=== PATIENT | male | born 1955 | race Asian ===

== ENCOUNTER 2017-12-01 18:42 | Inpatient (IN) | payer OTHER ==
[~2017-12-01] VITALS: Ht 175.3 cm; Wt 65.8 kg
[2017-12-01 18:47] VITALS: BP_SYST 196
[2017-12-01] MEDS ORDERED: ASPIRIN 81 MG TAB.CHEW PO ONE (19:00)
[2017-12-01] MEDS ORDERED: ASPIRIN 81 MG TAB.CHEW ONE (19:06)
[2017-12-01 19:18] LABS: BASOPHILS # (AUTO) 0.1 K/uL (0.0-0.2); BASOPHILS % (AUTO) 0.7 % (0.0-2.0); EOSINOPHILS # (AUTO) 0.1 K/uL (0.0-0.4); EOSINOPHILS % (AUTO) 0.8 % (0.0-4.0); HEMATOCRIT 42.4 % (36-54); HEMOGLOBIN 13.2 g/dL (14.0-18.0); LYMPHOCYTES # (AUTO) 1.4 K/uL (1.0-5.5); LYMPHOCYTES % (AUTO) 19.7 % (20.5-51.5); MEAN CORPUSCULAR HEMOGLOBIN 22 pg (27-31); MEAN CORPUSCULAR HGB CONC 31 % (32-36); MEAN CORPUSCULAR VOLUME 71 fL (79.0-98.0); MONOCYTES # (AUTO) 0.3 K/uL (0.0-1.0); MONOCYTES % (AUTO) 4.2 % (1.7-9.3); NEUTROPHILS # (AUTO) 5.4 K/uL (1.8-7.7); NEUTROPHILS % (AUTO) 74.6 % (40.0-70.0); PLATELET COUNT (AUTO) 203 K/uL (130-430); RED BLOOD CELL COUNT(AUTO) 6.02 MIL/uL (4.2-6.2); RED CELL DISTRIBUTION WIDTH 13.6 % (9.0-15.0); WHITE BLOOD COUNT (AUTO) 7.3 K/uL (4.8-10.8)
[2017-12-01 19:23] LABS: CALCIUM 9.3 mg/dL (8.4-11.0); CREATININE 0.97 mg/dL (0.55-1.30)
[2017-12-01] MEDS ORDERED: NIFE90TA24 PO (19:26)
[2017-12-01] MEDS ORDERED: FERR159T2 PO (19:26)
[2017-12-01] MEDS ORDERED: SIMV40TA2 PO (19:26)
[2017-12-01] MEDS ORDERED: FERR15DR21 PO (19:26)
[2017-12-01] MEDS ORDERED: TAMS-11 PO (19:26)
[2017-12-01] MEDS ORDERED: METO25TA3 PO (19:26)
[2017-12-01] MEDS ORDERED: MULT-1164 PO (19:26)
[2017-12-01] MEDS ORDERED: LOSA50TA3 PO (19:26)
[2017-12-01] MEDS ORDERED: TRAM50TA92 PO (19:26)
[2017-12-01 19:27] LABS: PROTHROMBIN TIME 10.1 SECS (9.5-12.5)
[2017-12-01 19:28] LABS: ALBUMIN 3.7 g/dL (3.4-4.8); POTASSIUM 2.9 mmol/L (3.5-5.1); TOTAL BILIRUBIN 0.8 mg/dL (0.0-1.0)
[2017-12-01] MEDS ORDERED: POTASSIUM CHLORIDE 20 MEQ TAB.PRT.SR PO ONE (19:30)
[2017-12-01] MEDS ORDERED: NACL 0.9% 1,000 ML IV ONE (20:00)
[2017-12-01] MEDS ORDERED: hydrALAZINE HCL 20 MG/ML VIAL IVP ONE (20:00)
[2017-12-01] MEDS ORDERED: GLU500 PO (20:45)
[2017-12-01 20:56] VITALS: BP_SYST 144
[2017-12-01] MEDS ORDERED: D5W 1,000 ML IV PRN (23:14)
[2017-12-01] MEDS ORDERED: ALBUTEROL SULFATE 0.083% 2.5 MG/3 ML VIAL.NEB INH PRN (23:15)
[2017-12-01] MEDS ORDERED: DEXTROSE 50% JECT 50 ML DISP.SYRIN IVP PRN ×2 (23:15)
[2017-12-01] MEDS ORDERED: GLUCOSE 15 GM GEL (in 37.5 GM TUBE) PO PRN ×2 (23:15)
[2017-12-01] MEDS ORDERED: ONDANSETRON HCL 4 MG/2 ML VIAL IVP PRN (23:15)
[2017-12-01 23:33] VITALS: BP_SYST 144
[2017-12-01] MEDS: ACETAMINOPHEN 325 MG TABLET PO PRN (23:55)
[2017-12-01 23:56] VITALS: BP_SYST 138
[2017-12-02] MEDS ORDERED: traMADol HCL HCL 50 MG TABLET (ULTRAM) PO PRN ×2 (01:00→11:30)
[2017-12-02] MEDS: INSULIN REGULAR, HUMAN 100 UNITS/ML, 10 ML VIAL (novoLIN R) SUBCUT PRN ×4 (07:09→21:29)
[2017-12-02 07:23] LABS: BASOPHILS # (AUTO) 0.1 K/uL (0.0-0.2); BASOPHILS % (AUTO) 0.7 % (0.0-2.0); EOSINOPHILS # (AUTO) 0.1 K/uL (0.0-0.4); EOSINOPHILS % (AUTO) 1.5 % (0.0-4.0); HEMATOCRIT 40.3 % (36-54); HEMOGLOBIN 12.7 g/dL (14.0-18.0); LYMPHOCYTES # (AUTO) 1.7 K/uL (1.0-5.5); LYMPHOCYTES % (AUTO) 21.8 % (20.5-51.5); MEAN CORPUSCULAR HEMOGLOBIN 22 pg (27-31); MEAN CORPUSCULAR HGB CONC 32 % (32-36); MEAN CORPUSCULAR VOLUME 70 fL (79.0-98.0); MONOCYTES # (AUTO) 0.4 K/uL (0.0-1.0); MONOCYTES % (AUTO) 4.9 % (1.7-9.3); NEUTROPHILS # (AUTO) 5.4 K/uL (1.8-7.7); NEUTROPHILS % (AUTO) 71.1 % (40.0-70.0); PLATELET COUNT (AUTO) 190 K/uL (130-430); RED BLOOD CELL COUNT(AUTO) 5.75 MIL/uL (4.2-6.2); RED CELL DISTRIBUTION WIDTH 13.6 % (9.0-15.0); WHITE BLOOD COUNT (AUTO) 7.8 K/uL (4.8-10.8)
[2017-12-02 07:30] LABS: ANION GAP 8 (5-15); CALCIUM 8.4 mg/dL (8.4-11.0); CHLORIDE 102 mmol/L (98-107); CREATININE 0.69 mg/dL (0.55-1.30); GLUCOSE 200 mg/dL (70-99); SODIUM SERUM 143 mmol/L (136-145); UREA NITROGEN, BLOOD 14 mg/dL (8-21)
[2017-12-02 07:38] LABS: GFR AFRICAN AMERICAN 148 mL/min (>90)
[2017-12-02 07:40] LABS: POTASSIUM 2.6 mmol/L (3.5-5.1)
[2017-12-02] MEDS ORDERED: POTASSIUM CHLORIDE 60 MEQ in NS 500 ML IV SCH (07:41)
[2017-12-02 07:49] LABS: ALANINE AMINOTRANSFERASE 14 U/L (12-78); ALBUMIN 3.6 g/dL (3.4-4.8); ASPARTATE AMINOTRANSFERASE 17 U/L (10-37); TOTAL BILIRUBIN 0.8 mg/dL (0.0-1.0)
[2017-12-02 08:06] LABS: CHOLESTEROL 117 mg/dL (<200); HDL CHOLESTEROL 56 mg/dL (>45); LDL CHOLESTEROL 52 mg/dL (<100); TRIGLYCERIDES 93 mg/dL (30-150)
[2017-12-02 08:34] VITALS: BP_SYST 149
[2017-12-02] MEDS: NIFEDIPINE 90 MG TABLET.SA (PROCARDIA XL 90 MG) PO SCH (08:37)
[2017-12-02] MEDS: TAMSULOSIN HCL 0.4 MG CAP PO SCH (08:38)
[2017-12-02] MEDS: LOSARTAN POTASSIUM 50 MG TABLET (COZAAR) PO SCH (08:38)
[2017-12-02] MEDS: METOPROLOL SUCCINATE 25 MG TAB.SR.24H (TOPROL XL) PO SCH (08:39)
[2017-12-02] MEDS: ASPIRIN 81 MG TAB.CHEW PO SCH (08:39)
[2017-12-02] MEDS ORDERED: TRAM50TA92 PO (09:35)
[2017-12-02] MEDS: ACETAMINOPHEN 325 MG TABLET PO PRN (11:32)
[2017-12-02 12:29] VITALS: BP_SYST 169
[2017-12-02 16:45] VITALS: BP_SYST 159
[2017-12-02 20:00] VITALS: BP_SYST 163
[2017-12-02 20:29] LABS: CALCIUM 8.8 mg/dL (8.4-11.0); CREATININE 0.95 mg/dL (0.55-1.30)
[2017-12-02] MEDS ORDERED: SIMVASTATIN 40 MG TABLET PO SCH (21:00)
[2017-12-02] MEDS ORDERED: POTASSIUM CHLORIDE 20 MEQ TAB.PRT.SR PO ONE (23:30)
[2017-12-03] MEDS: cloNIDine HCL 0.1 MG TABLET PO PRN ×2 (00:06→11:39)
[2017-12-03 00:17] VITALS: BP_SYST 165
[2017-12-03 04:00] VITALS: BP_SYST 147
[2017-12-03] MEDS: INSULIN REGULAR, HUMAN 100 UNITS/ML, 10 ML VIAL (novoLIN R) SUBCUT PRN ×2 (06:11→11:57)
[2017-12-03 08:10] VITALS: BP_SYST 159
[2017-12-03] MEDS: NIFEDIPINE 90 MG TABLET.SA (PROCARDIA XL 90 MG) PO SCH (08:40)
[2017-12-03] MEDS: METOPROLOL SUCCINATE 25 MG TAB.SR.24H (TOPROL XL) PO SCH (08:40)
[2017-12-03] MEDS: TAMSULOSIN HCL 0.4 MG CAP PO SCH (08:40)
[2017-12-03] MEDS: ASPIRIN 81 MG TAB.CHEW PO SCH (08:40)
[2017-12-03] MEDS: LOSARTAN POTASSIUM 50 MG TABLET (COZAAR) PO SCH (08:41)
[2017-12-03 11:12] LABS: CALCIUM 9.2 mg/dL (8.4-11.0); CREATININE 0.77 mg/dL (0.55-1.30); POTASSIUM 3.1 mmol/L (3.5-5.1)
[2017-12-03] MEDS ORDERED: POTASSIUM CHLORIDE 20 MEQ/PKT PACKET PO ONE (11:30)
[2017-12-03 12:46] VITALS: BP_SYST 135
[2017-12-03 12:57] VITALS: BP_SYST 135
== END 2017-12-03 13:15 | disposition home or self-care (01) | DRG 638 ==
LOC: SED 18:42 → INTOOBSV 20:26 → STU 20:26 → OBSVTOIN 12-02 07:35 → SMU 12-03 11:32
PROVIDERS: ADMIT Internal Medicine; ATTEND Internal Medicine Hospice and Palliative Medicine
DX: E11.65 Type 2 diabetes mellitus with hyperglycemia (principal); Q21.0 Ventricular septal defect; K21.9 Gastro-esophageal reflux disease without esophagitis; E87.6 Hypokalemia; E78.5 Hyperlipidemia, unspecified; I10 Essential (primary) hypertension; Z83.3 Family history of diabetes mellitus; Z85.528 Personal history of other malignant neoplasm of kidney; Z90.5 Acquired absence of kidney; Z88.5 Allergy status to narcotic agent; Z79.899 Other long term (current) drug therapy
CPT/HCPCS: 36415; 71045; 80048; 80053; 80061; 82550-TC; 82962; 83036; 83880; 84484; 85025; 85610-TC; 85730-TC; 93005; 93306; 96361; 96374; 99285; G0378; J0360; J3480; J7030; J7040

== ENCOUNTER 2018-09-25 07:44 | Emergency (ER) | payer BC, OTHER ==
[~2018-09-25] VITALS: Ht 175.3 cm; Wt 57.2 kg
[~2018-09-25 07:44] MED LIST: GLU500 PO; LOSA50TA3 PO; METO25TA3 PO; MULT-1164 PO; NIFE90TA24 PO; SIMV40TA2 PO; TAMS-11 PO
[2018-09-25 07:55] VITALS: BP_SYST 207
--- NOTE | 2018-09-25 08:03 | NUR ---
Patient to ER bed 2 to gown for evaluation. Side rails up. Report given to Cindy MURRAY.
--- NOTE | 2018-09-25 08:10 | NUR ---
ER Dr. Laura at bedside examining patient.
[2018-09-25] MEDS ORDERED: LIDOCAINE 1% 10 MG/ML, 20 ML MDV INJ ONE (08:15)
--- NOTE | 2018-09-25 08:24 | NUR ---
Patient has a 1 cm laceration to midline upper lip. Dr. Laura applied sutures using sterile technique. Edges well approximated. Site cleansed with Ns. site open to air. No bleeding noted. Pt tolerated well.
[2018-09-25] MEDS ORDERED: IBUPROFEN 800 MG TABLET PO ONE (08:45)
[2018-09-25] MEDS ORDERED: CLINDAMYCIN HCL 150 MG CAPSULE PO ONE (08:45)
--- NOTE | 2018-09-25 09:49 | NUR ---
Patient given written and verbal discharge instructions and verbalizes understanding. ER MD discussed with patient the results and treatment provided. Patient in stable condition. ID arm band removed. Rx of Clindamycin, Motrin given. Patient educated on pain management and to follow up with PMD. Pain Scale 4. Opportunity for questions provided and answered. Medication side effect fact sheet provided.
[2018-09-25 09:50] VITALS: BP_SYST 156
== END 2018-09-25 09:49 | disposition home or self-care (01) ==
LOC: SED 07:44
DX: S01.511A Laceration without foreign body of lip, initial encounter (principal); I10 Essential (primary) hypertension; Z85.53 Personal history of malignant neoplasm of renal pelvis; Z79.899 Other long term (current) drug therapy; Z88.6 Allergy status to analgesic agent; Z88.7 Allergy status to serum and vaccine; W01.0XXA Fall on same level from slipping, tripping and stumbling without subsequent striking against object, initial encounter; Y93.89 Activity, other specified; Y92.89 Other specified places as the place of occurrence of the external cause; Y99.8 Other external cause status
CPT/HCPCS: 12011; 99283; J2001

== ENCOUNTER 2018-11-14 06:31 | Inpatient (IN) | payer BC ==
[~2018-11-14] VITALS: Ht 177.8 cm; Wt 59.9 kg
[2018-11-14 06:31] VITALS: BP_SYST 222
[2018-11-14] MEDS ORDERED: hydrALAZINE HCL 20 MG/ML VIAL IVP ONE (06:45)
[2018-11-14] MEDS ORDERED: hydrALAZINE HCL 20 MG/ML VIAL ONE (06:53)
[2018-11-14] MEDS ORDERED: PRO40 PO ×2 (07:12→09:46)
[2018-11-14] MEDS ORDERED: AMYL1CAP58 PO ×2 (07:12→09:46)
[2018-11-14 07:17] LABS: HEMATOCRIT 30.2 % (36-54); HEMOGLOBIN 9.6 g/dL (14.0-18.0); MEAN CORPUSCULAR HEMOGLOBIN 24 pg (27-31); MEAN CORPUSCULAR HGB CONC 32 % (32-36); MEAN CORPUSCULAR VOLUME 74 fL (79.0-98.0); PLATELET COUNT (AUTO) 200 K/uL (130-430); RED BLOOD CELL COUNT(AUTO) 4.09 MIL/uL (4.2-6.2); RED CELL DISTRIBUTION WIDTH 16.9 % (9.0-15.0)
[2018-11-14 07:35] LABS: ANION GAP 11 (5-15); CALCIUM 8.7 mg/dL (8.4-11.0); CHLORIDE 111 mmol/L (98-107); CREATININE 1.36 mg/dL (0.55-1.30); GLUCOSE 111 mg/dL (70-99); SODIUM SERUM 144 mmol/L (136-145); UREA NITROGEN, BLOOD 29 mg/dL (8-21)
[2018-11-14 07:37] LABS: GFR AFRICAN AMERICAN 68 mL/min (>90)
[2018-11-14 07:43] LABS: ALANINE AMINOTRANSFERASE 29 U/L (12-78); ALBUMIN 3.1 g/dL (3.4-4.8); ASPARTATE AMINOTRANSFERASE 64 U/L (10-37); TOTAL BILIRUBIN 0.5 mg/dL (0.0-1.0)
[2018-11-14 07:51] LABS: BILIRUBIN,URINE NEGATIVE (NEGATIVE); BLOOD, URINE 3+ (NEGATIVE); GLUCOSE,URINE NEGATIVE (NEGATIVE); KETONES,URINE NEGATIVE (NEGATIVE); LEUKOCYTE ESTERASE ,URINE NEGATIVE (NEGATIVE); NITRITE, URINE NEGATIVE (NEGATIVE); PROTEIN URINE 3+ (NEGATIVE); UROBILINOGEN,URINE 0.2 (0.2-1.0)
[2018-11-14 08:14] LABS: CLARITY/URINE CLOUDY (CLEAR); RBC,URINE >100 /HPF (0-3); WBC,URINE 0-3 /HPF (0-3)
[2018-11-14 08:15] LABS: BACTERIA,URINE FEW /HPF (None Seen); CALCIUM OXALATE CRYSTALS,UR 0-10 /HPF (None Seen); COLOR,URINE ORANGE (YELLOW); MUCUS,URINE 1+ /LPF (None Seen)
[2018-11-14 08:24] LABS: BASOPHILS % (MANUAL) 0 % (0-2); EOSINOPHILS % (MANUAL) 3 % (0-7); LYMPHOCYTES % (MANUAL) 48 % (20-46); MONOCYTES % (MANUAL) 12 % (0-11)
[2018-11-14] MEDS ORDERED: fentaNYL CITRATE/PF 100 MCG/2 ML AMP IVP ONE (08:45)
[2018-11-14] MEDS ORDERED: METF500S7 PO (09:46)
[2018-11-14] MEDS ORDERED: METO25TA3 PO (09:46)
[2018-11-14] MEDS ORDERED: TRAM-350 PO (09:46)
[2018-11-14] MEDS ORDERED: SIMV40TA2 PO (09:46)
[2018-11-14] MEDS ORDERED: LOSA50TA3 PO (09:46)
[2018-11-14] MEDS ORDERED: MULT-1198 PO (09:46)
[2018-11-14] MEDS ORDERED: HYDR-4272 PO (09:46)
[2018-11-14] MEDS ORDERED: TAMS-11 PO (09:46)
[2018-11-14] MEDS ORDERED: NIFE60TA PO (09:46)
[2018-11-14] MEDS ORDERED: IRON28TA4 PO (09:47)
[2018-11-14 10:33] VITALS: BP_SYST 162
[2018-11-14 11:08] LABS: INR 1.1 (0.80-1.20); PROTHROMBIN TIME 10.8 SECS (9.5-12.5)
[2018-11-14 11:18] VITALS: BP_SYST 163
[2018-11-14] MEDS ORDERED: SIME125C PO (11:20)
[2018-11-14] MEDS ORDERED: tramadol PO (11:20)
[2018-11-14] MEDS ORDERED: lomotil PO (11:27)
[2018-11-14] MEDS ORDERED: NIFE10CA PO (11:27)
[2018-11-14] MEDS ORDERED: immodium PO (11:27)
[2018-11-14] MEDS: 0.45% NACL 1,000 ML IV SCH (11:41)
[2018-11-14] MEDS: PIPERACILLIN/TAZO 2.25G/DEX-IS 50 ML IV SCH ×3 (11:55→23:04)
[2018-11-14 15:28] VITALS: BP_SYST 163
[2018-11-14] MEDS ORDERED: BUPIVACAINE /EPINEPHRINE/PF 0.5% 30 ML VIAL INJ ONE (20:15)
[2018-11-14] MEDS ORDERED: PROPOFOL 200MG/ 20ML VIAL (DIPRIVAN) IV ONE (20:15)
[2018-11-14] MEDS ORDERED: LIDOCAINE PF 1%, 20 MG/2 ML AMP INJ ONE (20:15)
[2018-11-14] MEDS ORDERED: PIPERACILLIN/TAZOBACTAM 2.25 GM VIAL IV ONE (20:15)
[2018-11-14] MEDS ORDERED: LR 1,000 ML IV.SOLN IV ONE (20:15)
[2018-11-14] MEDS ORDERED: MIDAZOLAM HCL 5 MG/5 ML VIAL IVP ONE (20:15)
[2018-11-14] MEDS ORDERED: DEXTROSE 50% JECT 50 ML DISP.SYRIN IVP PRN (20:45)
[2018-11-14] MEDS: SIMVASTATIN 40 MG TABLET PO SCH (21:35)
[2018-11-14] MEDS: LOSARTAN POTASSIUM 50 MG TABLET (COZAAR) PO SCH (21:35)
[2018-11-14 23:53] LABS: SOURCE/TYPE ,BODY FLUID PLEURAL
[2018-11-14 23:54] LABS: APPEARANCE,SPUN,BODY FLUID HAZY (CLEAR); BF APPEARANCE UNSPUN CLOUDY (CLEAR); BODY FLUID COLOR RED (LT YELLOW); BODY FLUID SOURCE/ TYPE PLEURAL; BODY FLUID TOTAL VOLUME 1000 mL; RBC, BODY FLUID 94700 /uL; WBC, BODY FLUID 14022 /uL
[2018-11-14 23:55] LABS: BODY FLUID OTHER CELLS 0 %; EOSINOPHIL, BODY FLUID 0 %; LYMPHOCYTES, BODY FLUID 53 %; MONOCYTES,BODY FLUID 46 %; NEUTROPHIL, BODY FLUID 1 %
[2018-11-15 00:26] VITALS: BP_SYST 146
[2018-11-15 02:41] LABS: BODY FLUID GLUCOSE 13 mg/dL; BODY FLUID TOTAL PROTEIN 3.7 g/dL
[2018-11-15] MEDS: PANTOPRAZOLE SODIUM 40 MG TAB PO SCH (06:33)
[2018-11-15] MEDS: PIPERACILLIN/TAZO 2.25G/DEX-IS 50 ML IV SCH ×4 (06:33→23:56)
[2018-11-15 06:46] LABS: ALBUMIN 2.8 g/dL (3.4-4.8); CREATININE 1.45 mg/dL (0.55-1.30); POTASSIUM 4.2 mmol/L (3.5-5.1); TOTAL BILIRUBIN 0.6 mg/dL (0.0-1.0)
[2018-11-15 07:11] LABS: BASOPHILS % (AUTO) 2.1 % (0.0-2.0); EOSINOPHILS # (AUTO) 0.1 K/uL (0.0-0.4); EOSINOPHILS % (AUTO) 7.3 % (0.0-4.0); HEMATOCRIT 29.2 % (36-54); HEMOGLOBIN 9.2 g/dL (14.0-18.0); LYMPHOCYTES # (AUTO) 0.8 K/uL (1.0-5.5); LYMPHOCYTES % (AUTO) 41.9 % (20.5-51.5); MEAN CORPUSCULAR HEMOGLOBIN 24 pg (27-31); MEAN CORPUSCULAR HGB CONC 31 % (32-36); MEAN CORPUSCULAR VOLUME 75 fL (79.0-98.0); MONOCYTES # (AUTO) 0.4 K/uL (0.0-1.0); MONOCYTES % (AUTO) 20.9 % (1.7-9.3); PLATELET COUNT (AUTO) 198 K/uL (130-430); RED CELL DISTRIBUTION WIDTH 18.4 % (9.0-15.0)
[2018-11-15 08:11] VITALS: BP_SYST 177
[2018-11-15 08:16] LABS: NEUTROPHILS # (AUTO) 0.5 K/uL (1.8-7.7); NEUTROPHILS % (AUTO) 27.8 % (40.0-70.0); WHITE BLOOD COUNT (AUTO) 1.9 K/uL (4.8-10.8)
[2018-11-15] MEDS: METOPROLOL SUCCINATE 25 MG TAB.SR.24H (TOPROL XL) PO SCH (08:29)
[2018-11-15 11:36] VITALS: BP_SYST 180
[2018-11-15] MEDS ORDERED: cloNIDine HCL 0.1 MG TABLET PO PRN (12:15)
[2018-11-15] MEDS ORDERED: NIFEDIPINE 90 MG TABLET.SA (PROCARDIA XL 90 MG) PO ONE (12:15)
[2018-11-15] MEDS: IPRATROPIUM/ALBUTEROL SULFATE 3 ML AMPUL.NEB (DUONEB) INH SCH ×2 (13:36→19:47)
[2018-11-15] MEDS: 0.45% NACL 1,000 ML IV SCH (13:42)
[2018-11-15 14:00] VITALS: BP_SYST 180
[2018-11-15] MEDS: guaiFENesin/DEXTROMETHORPHAN 10 ML UDC PO PRN ×2 (14:49→21:04)
[2018-11-15 16:51] VITALS: BP_SYST 167
[2018-11-15] MEDS: INSULIN REGULAR, HUMAN 100 UNITS/ML, 10 ML VIAL (novoLIN R) SUBCUT PRN ×2 (18:07→23:57)
[2018-11-15] MEDS: LOSARTAN POTASSIUM 50 MG TABLET (COZAAR) PO SCH (21:00)
[2018-11-15] MEDS: SIMVASTATIN 40 MG TABLET PO SCH (21:03)
[2018-11-16 00:09] VITALS: BP_SYST 124
[2018-11-16] MEDS: IPRATROPIUM/ALBUTEROL SULFATE 3 ML AMPUL.NEB (DUONEB) INH SCH ×4 (00:36→20:43)
[2018-11-16 06:26] LABS: CALCIUM 8.2 mg/dL (8.4-11.0); CREATININE 1.46 mg/dL (0.55-1.30)
[2018-11-16 06:35] LABS: ALBUMIN 2.4 g/dL (3.4-4.8)
[2018-11-16] MEDS: PIPERACILLIN/TAZO 2.25G/DEX-IS 50 ML IV SCH ×4 (06:38→23:50)
[2018-11-16] MEDS: PANTOPRAZOLE SODIUM 40 MG TAB PO SCH (06:39)
[2018-11-16 06:40] LABS: HEMATOCRIT 26.4 % (36-54); HEMOGLOBIN 8.3 g/dL (14.0-18.0); MEAN CORPUSCULAR HEMOGLOBIN 23 pg (27-31); MEAN CORPUSCULAR HGB CONC 31 % (32-36); MEAN CORPUSCULAR VOLUME 74 fL (79.0-98.0); PLATELET COUNT (AUTO) 170 K/uL (130-430); RED BLOOD CELL COUNT(AUTO) 3.58 MIL/uL (4.2-6.2); RED CELL DISTRIBUTION WIDTH 19.3 % (9.0-15.0)
[2018-11-16 07:10] LABS: TOTAL BILIRUBIN 0.2 mg/dL (0.0-1.0)
[2018-11-16 07:22] LABS: WHITE BLOOD COUNT (AUTO) 1.9 K/uL (4.8-10.8)
[2018-11-16 08:00] VITALS: BP_SYST 145
[2018-11-16 08:12] LABS: BASOPHILS % (MANUAL) 0 % (0-2); EOSINOPHILS % (MANUAL) 5 % (0-7); LYMPHOCYTES % (MANUAL) 44 % (20-46); MONOCYTES % (MANUAL) 14 % (0-11)
[2018-11-16] MEDS: NIFEDIPINE 90 MG TABLET.SA (PROCARDIA XL 90 MG) PO SCH (08:49)
[2018-11-16] MEDS: METOPROLOL SUCCINATE 25 MG TAB.SR.24H (TOPROL XL) PO SCH (08:50)
[2018-11-16] MEDS ORDERED: TAMSULOSIN HCL 0.4 MG CAP PO ONE (10:30)
[2018-11-16] MEDS ORDERED: IRON HEME POLYP PO SCH (10:30)
[2018-11-16] MEDS ORDERED: [UNRECOGNIZED DRUG - OTHER] PO SCH (10:30)
[2018-11-16] MEDS ORDERED: IRON POLYSACCH PO SCH (10:30)
[2018-11-16 10:42] LABS: BODY FLUID SOURCE/ TYPE PLEURAL; SOURCE/TYPE ,BODY FLUID PLEURAL
[2018-11-16 10:43] LABS: BF APPEARANCE UNSPUN BLOODY (CLEAR); BODY FLUID COLOR RED (LT YELLOW); BODY FLUID TOTAL VOLUME 2050 mL; WBC, BODY FLUID 12450 /uL
[2018-11-16 10:44] LABS: RBC, BODY FLUID 84900 /uL
[2018-11-16 10:46] LABS: LYMPHOCYTES, BODY FLUID 32 %; MONOCYTES,BODY FLUID 60 %; NEUTROPHIL, BODY FLUID 8 %
[2018-11-16] MEDS: guaiFENesin/DEXTROMETHORPHAN 10 ML UDC PO PRN (12:20)
[2018-11-16 12:36] VITALS: BP_SYST 150
[2018-11-16] MEDS: IPRATROPIUM/ALBUTEROL SULFATE 3 ML AMPUL.NEB (DUONEB) INH PRN (15:18)
[2018-11-16 16:30] VITALS: BP_SYST 126
[2018-11-16 17:13] LABS: BODY FLUID GLUCOSE 3 mg/dL; BODY FLUID TOTAL PROTEIN 3.2 g/dL
[2018-11-16] MEDS: INSULIN REGULAR, HUMAN 100 UNITS/ML, 10 ML VIAL (novoLIN R) SUBCUT PRN (18:33)
[2018-11-16 19:10] VITALS: BP_SYST 143
[2018-11-16] MEDS: LOSARTAN POTASSIUM 50 MG TABLET (COZAAR) PO SCH (20:43)
[2018-11-16] MEDS: SIMVASTATIN 40 MG TABLET PO SCH (20:43)
[2018-11-16 23:49] VITALS: BP_SYST 139
[2018-11-17] MEDS: IPRATROPIUM/ALBUTEROL SULFATE 3 ML AMPUL.NEB (DUONEB) INH SCH ×4 (01:29→20:12)
[2018-11-17] MEDS: PIPERACILLIN/TAZO 2.25G/DEX-IS 50 ML IV SCH ×4 (05:39→21:26)
[2018-11-17] MEDS: PANTOPRAZOLE SODIUM 40 MG TAB PO SCH (06:30)
[2018-11-17 06:38] LABS: BASOPHILS % (AUTO) 2.1 % (0.0-2.0); EOSINOPHILS # (AUTO) 0.1 K/uL (0.0-0.4); EOSINOPHILS % (AUTO) 5.8 % (0.0-4.0); HEMATOCRIT 25.7 % (36-54); HEMOGLOBIN 8.1 g/dL (14.0-18.0); LYMPHOCYTES # (AUTO) 0.6 K/uL (1.0-5.5); LYMPHOCYTES % (AUTO) 33.3 % (20.5-51.5); MEAN CORPUSCULAR HEMOGLOBIN 23 pg (27-31); MEAN CORPUSCULAR HGB CONC 32 % (32-36); MEAN CORPUSCULAR VOLUME 74 fL (79.0-98.0); MONOCYTES # (AUTO) 0.5 K/uL (0.0-1.0); MONOCYTES % (AUTO) 29.7 % (1.7-9.3); NEUTROPHILS % (AUTO) 29.1 % (40.0-70.0); PLATELET COUNT (AUTO) 177 K/uL (130-430); RED BLOOD CELL COUNT(AUTO) 3.47 MIL/uL (4.2-6.2); RED CELL DISTRIBUTION WIDTH 20.2 % (9.0-15.0)
[2018-11-17 07:21] LABS: WHITE BLOOD COUNT (AUTO) 1.8 K/uL (4.8-10.8)
[2018-11-17 07:22] LABS: NEUTROPHILS # (AUTO) 0.5 K/uL (1.8-7.7)
[2018-11-17] MEDS: METOPROLOL SUCCINATE 25 MG TAB.SR.24H (TOPROL XL) PO SCH (08:13)
[2018-11-17] MEDS: TAMSULOSIN HCL 0.4 MG CAP PO SCH (08:14)
[2018-11-17] MEDS: NIFEDIPINE 90 MG TABLET.SA (PROCARDIA XL 90 MG) PO SCH (08:14)
[2018-11-17 08:23] VITALS: BP_SYST 143
[2018-11-17 14:02] VITALS: BP_SYST 113
[2018-11-17 16:34] VITALS: BP_SYST 138
[2018-11-17 20:00] VITALS: BP_SYST 112
[2018-11-17] MEDS: SIMVASTATIN 40 MG TABLET PO SCH (21:26)
[2018-11-17] MEDS: LOSARTAN POTASSIUM 50 MG TABLET (COZAAR) PO SCH (21:31)
[2018-11-18] VITALS (9 sets, daily range): BP systolic 114–131
[2018-11-18] MEDS: IPRATROPIUM/ALBUTEROL SULFATE 3 ML AMPUL.NEB (DUONEB) INH SCH ×4 (01:18→19:39)
[2018-11-18] MEDS: PIPERACILLIN/TAZO 2.25G/DEX-IS 50 ML IV SCH ×4 (02:40→22:12)
[2018-11-18] MEDS: traMADol HCL HCL 50 MG TABLET (ULTRAM) PO PRN ×2 (03:13→23:58)
[2018-11-18] MEDS: PANTOPRAZOLE SODIUM 40 MG TAB PO SCH (06:40)
[2018-11-18 06:41] LABS: HEMATOCRIT 27.9 % (36-54); HEMOGLOBIN 8.7 g/dL (14.0-18.0); MEAN CORPUSCULAR HEMOGLOBIN 23 pg (27-31); MEAN CORPUSCULAR HGB CONC 31 % (32-36); MEAN CORPUSCULAR VOLUME 75 fL (79.0-98.0); PLATELET COUNT (AUTO) 189 K/uL (130-430); RED BLOOD CELL COUNT(AUTO) 3.73 MIL/uL (4.2-6.2); RED CELL DISTRIBUTION WIDTH 21.2 % (9.0-15.0); WHITE BLOOD COUNT (AUTO) 2.5 K/uL (4.8-10.8)
[2018-11-18 07:51] LABS: BASOPHILS % (MANUAL) 0 % (0-2); EOSINOPHILS % (MANUAL) 7 % (0-7); LYMPHOCYTES % (MANUAL) 37 % (20-46); MONOCYTES % (MANUAL) 14 % (0-11)
[2018-11-18] MEDS: TAMSULOSIN HCL 0.4 MG CAP PO SCH (08:55)
[2018-11-18] MEDS: NIFEDIPINE 90 MG TABLET.SA (PROCARDIA XL 90 MG) PO SCH (08:55)
[2018-11-18] MEDS: METOPROLOL SUCCINATE 25 MG TAB.SR.24H (TOPROL XL) PO SCH (08:55)
[2018-11-18] MEDS ORDERED: ONDANSETRON HCL 4 MG/2 ML VIAL IVP PRN (21:00)
[2018-11-18] MEDS ORDERED: fentaNYL CITRATE/PF 100 MCG/2 ML AMP IVP PRN ×2 (21:00)
[2018-11-18] MEDS: SIMVASTATIN 40 MG TABLET PO SCH (22:13)
[2018-11-18] MEDS: LOSARTAN POTASSIUM 50 MG TABLET (COZAAR) PO SCH (22:13)
[2018-11-18] MEDS: IPRATROPIUM/ALBUTEROL SULFATE 3 ML AMPUL.NEB (DUONEB) INH PRN (23:07)
[2018-11-19] MEDS: IPRATROPIUM/ALBUTEROL SULFATE 3 ML AMPUL.NEB (DUONEB) INH SCH ×3 (00:57→13:21)
[2018-11-19] MEDS: PIPERACILLIN/TAZO 2.25G/DEX-IS 50 ML IV SCH ×2 (03:02→09:13)
[2018-11-19] MEDS: guaiFENesin/DEXTROMETHORPHAN 10 ML UDC PO PRN (05:03)
[2018-11-19] MEDS: traMADol HCL HCL 50 MG TABLET (ULTRAM) PO PRN (05:09)
[2018-11-19 05:57] LABS: HEMATOCRIT 29.7 % (36-54); HEMOGLOBIN 9.3 g/dL (14.0-18.0); MEAN CORPUSCULAR HEMOGLOBIN 23 pg (27-31); MEAN CORPUSCULAR HGB CONC 31 % (32-36); MEAN CORPUSCULAR VOLUME 75 fL (79.0-98.0); PLATELET COUNT (AUTO) 231 K/uL (130-430); RED BLOOD CELL COUNT(AUTO) 3.96 MIL/uL (4.2-6.2); RED CELL DISTRIBUTION WIDTH 20.1 % (9.0-15.0); WHITE BLOOD COUNT (AUTO) 3.6 K/uL (4.8-10.8)
[2018-11-19] MEDS: PANTOPRAZOLE SODIUM 40 MG TAB PO SCH (06:39)
[2018-11-19 06:45] LABS: CALCIUM 8.5 mg/dL (8.4-11.0); CREATININE 1.43 mg/dL (0.55-1.30); POTASSIUM 3.6 mmol/L (3.5-5.1)
[2018-11-19 07:39] LABS: BAND % (MANUAL) 1 % (0-6); BASOPHILS % (MANUAL) 0 % (0-2); EOSINOPHILS % (MANUAL) 1 % (0-7); LYMPHOCYTES % (MANUAL) 33 % (20-46); MONOCYTES % (MANUAL) 18 % (0-11)
[2018-11-19 07:50] VITALS: BP_SYST 151
[2018-11-19] MEDS ORDERED: HYDROcodone/ACETAMIN 5-325 MG TAB (NORCO/ VICODIN) PO PRN (08:45)
[2018-11-19] MEDS: TAMSULOSIN HCL 0.4 MG CAP PO SCH (09:10)
[2018-11-19] MEDS: NIFEDIPINE 90 MG TABLET.SA (PROCARDIA XL 90 MG) PO SCH (09:10)
[2018-11-19] MEDS: METOPROLOL SUCCINATE 25 MG TAB.SR.24H (TOPROL XL) PO SCH (09:11)
[2018-11-19] MEDS ORDERED: HYDROcodone/ACETAMIN 5-325 MG TAB (NORCO/ VICODIN) ONE (09:13)
[2018-11-19 11:46] VITALS: BP_SYST 141
[2018-11-19 12:01] VITALS: BP_SYST 141
[2018-11-19 16:15] VITALS: BP_SYST 141
== END 2018-11-19 16:25 | disposition home health service (06) | DRG 435 ==
LOC: SED 06:31 → STU 09:28 → SMU 11-16 12:32
PROVIDERS: ADMIT Internal Medicine Hospice and Palliative Medicine; ATTEND Internal Medicine Hospice and Palliative Medicine
PROC: 0W9B3ZZ Drainage of Left Pleural Cavity, Percutaneous Approach (ICD-10-PCS; principal; 2018-11-14)
PROC: 0W9B3ZZ Drainage of Left Pleural Cavity, Percutaneous Approach (ICD-10-PCS; 2018-11-15)
PROC: 02HV33Z Insertion of Infusion Device into Superior Vena Cava, Percutaneous Approach (ICD-10-PCS; 2018-11-19)
PROC: B5181ZA Fluoroscopy of Superior Vena Cava using Low Osmolar Contrast, Guidance (ICD-10-PCS; 2018-11-19)
DX: C25.9 Malignant neoplasm of pancreas, unspecified (principal); E43 Unspecified severe protein-calorie malnutrition; J90 Pleural effusion, not elsewhere classified; Z68.1 Body mass index [BMI] 19.9 or less, adult; D64.9 Anemia, unspecified; D70.9 Neutropenia, unspecified; E11.22 Type 2 diabetes mellitus with diabetic chronic kidney disease; E78.5 Hyperlipidemia, unspecified; I12.9 Hypertensive chronic kidney disease with stage 1 through stage 4 chronic kidney disease, or unspecified chronic kidney disease; N18.9 Chronic kidney disease, unspecified; Z82.49 Family history of ischemic heart disease and other diseases of the circulatory system; Z83.3 Family history of diabetes mellitus; Z79.899 Other long term (current) drug therapy; Z79.82 Long term (current) use of aspirin; Z85.07 Personal history of malignant neoplasm of pancreas; Z85.528 Personal history of other malignant neoplasm of kidney; Z90.5 Acquired absence of kidney; Z88.5 Allergy status to narcotic agent; Z88.7 Allergy status to serum and vaccine
CPT/HCPCS: 32555; 36415; 71045; 71250-TC; 76700-TC; 80048; 80053; 81000-TC; 82947-TC; 82962; 83615-TC; 83690-TC; 83880; 84157-TC; 84484; 85007; 85025; 85027; 85379; 85610-TC; 87045-TC; 87070-TC; 87081; 87101; 87116; 87230-TC; 88108; 88305; 88341; 88342; 89051-TC; 89060-TC; 93005; 94640; 94760; 96374; 96375; 99291; C1729; C1750; G0378; J0360; J1815; J2001; J2250; J2543; J2704; J3010; J3490; J7030; J7120; J7620

== ENCOUNTER 2019-01-01 14:19 | Inpatient (IN) | payer BC ==
[~2019-01-01] VITALS: Ht 177.8 cm; Wt 48.1 kg
[~2019-01-01 14:19] MED LIST changes: +AMYL1CAP58 PO; +HYDR-4272 PO; +IRON28TA4 PO; +METF500S7 PO; +NIFE10CA PO; +NIFE60TA PO; -NIFE90TA24 PO; +PRO40 PO; +SIME125C PO; +immodium PO; +lomotil PO; +tramadol PO
[2019-01-01 14:26] VITALS: BP_SYST 120
[2019-01-01] MEDS ORDERED: NACL 0.9% 1,000 ML IV ONE ×4 (14:36→18:15)
[2019-01-01 15:57] LABS: HEMATOCRIT 31.5 % (36-54); MEAN CORPUSCULAR HEMOGLOBIN 23 pg (27-31); MEAN CORPUSCULAR HGB CONC 32 % (32-36); MEAN CORPUSCULAR VOLUME 73 fL (79.0-98.0); PLATELET COUNT (AUTO) 258 K/uL (130-430); RED CELL DISTRIBUTION WIDTH 19.1 % (9.0-15.0)
[2019-01-01 16:08] LABS: PROTHROMBIN TIME 10.2 SECS (9.5-12.5)
[2019-01-01 16:09] LABS: ALBUMIN 1.9 g/dL (3.4-4.8); CALCIUM 7.9 mg/dL (8.4-11.0); CREATININE 2.58 mg/dL (0.55-1.30); TOTAL BILIRUBIN 0.3 mg/dL (0.0-1.0)
[2019-01-01 16:12] LABS: POTASSIUM 6.1 mmol/L (3.5-5.1)
[2019-01-01 16:15] LABS: BAND % (MANUAL) 0 % (0-6); BASOPHILS % (MANUAL) 0 % (0-2); EOSINOPHILS % (MANUAL) 0 % (0-7); LYMPHOCYTES % (MANUAL) 4 % (20-46); MONOCYTES % (MANUAL) 4 % (0-11)
[2019-01-01] MEDS ORDERED: CALCIUM GLUCONATE 1 GM/10 ML VIAL IVP ONE (16:30)
[2019-01-01] MEDS ORDERED: SODIUM POLYSTYRENE SULFONATE 15 GM/60 ML UDBTL PO ONE (16:30)
[2019-01-01] MEDS ORDERED: SODIUM BICARBONATE 8.4% JECT 50 MEQ/50 ML SYRINGE IVP ONE (16:30)
[2019-01-01] MEDS ORDERED: DEXTROSE 50% JECT 50 ML DISP.SYRIN IVP ONE (16:30)
[2019-01-01] MEDS ORDERED: INSULIN REGULAR, HUMAN 10 UNITS/0.1 ML INJ IVP ONE (16:30)
[2019-01-01] MEDS ORDERED: cefTRIAXone 1 GM IVPB PREMIX 50 ML IV ONE (16:45)
[2019-01-01 17:18] LABS: BILIRUBIN,URINE NEGATIVE (NEGATIVE); BLOOD, URINE 3+ (NEGATIVE); CLARITY/URINE CLEAR (CLEAR); COLOR,URINE YELLOW (YELLOW); GLUCOSE,URINE NEGATIVE (NEGATIVE); KETONES,URINE NEGATIVE (NEGATIVE); LEUKOCYTE ESTERASE ,URINE NEGATIVE (NEGATIVE); NITRITE, URINE NEGATIVE (NEGATIVE); PROTEIN URINE 1+ (NEGATIVE); UROBILINOGEN,URINE 0.2 (0.2-1.0)
[2019-01-01 17:25] LABS: BACTERIA,URINE FEW /HPF (None Seen); RBC,URINE >100 /HPF (0-3); URINE AMORPHOUS URATE 2+ /HPF (None Seen)
[2019-01-01] MEDS ORDERED: NACL 0.9% 1,000 ML IV SCH (17:54)
[2019-01-01] MEDS ORDERED: ACETAMINOPHEN 325 MG TABLET PO PRN (18:00)
[2019-01-01] MEDS ORDERED: NIFEdipine (O.B. USE ONLY) 10 MG CAPSULE PO PRN (18:00)
[2019-01-01] MEDS ORDERED: SIMETHICONE 80 MG TAB.CHEW PO PRN (18:00)
[2019-01-01] MEDS ORDERED: ALBUTEROL SULFATE 0.083% 2.5 MG/3 ML VIAL.NEB INH PRN (18:00)
[2019-01-01] MEDS ORDERED: HYDROcodone/ACETAMIN 5-325 MG TAB (NORCO/ VICODIN) PO PRN (18:00)
[2019-01-01 19:26] VITALS: BP_SYST 133
[2019-01-01] MEDS ORDERED: PIPERACILLIN/TAZOBACTAM 3.375 GM/VIAL (ZOSYN) IV ONE (20:44)
[2019-01-01 21:02] VITALS: BP_SYST 133
[2019-01-01] MEDS: LIPASE/PROTEASE/AMYLASE 1 CAP PO SCH (22:38)
[2019-01-01] MEDS: SIMVASTATIN 40 MG TABLET PO SCH (22:39)
[2019-01-01] MEDS: HYDROcodone/ACETAMIN 10-325 MG TAB PO PRN (22:40)
[2019-01-01] MEDS: PIPERACILLIN/TAZO 3.375/DEX-IS 50 ML IV SCH (22:52)
[2019-01-01] MEDS ORDERED: DEXTROSE 50% JECT 50 ML DISP.SYRIN IVP PRN (23:30)
[2019-01-01] MEDS ORDERED: hydrALAZINE HCL 25 MG TABLET PO PRN (23:30)
[2019-01-01] MEDS: D5NS 1,000 ML IV SCH (23:52)
[2019-01-01 23:58] LABS: CALCIUM 7.5 mg/dL (8.4-11.0); CREATININE 2.61 mg/dL (0.55-1.30); POTASSIUM 5.5 mmol/L (3.5-5.1)
[2019-01-02 00:22] VITALS: BP_SYST 140
[2019-01-02] MEDS: D5NS 1,000 ML IV SCH ×2 (06:09→15:01)
[2019-01-02 06:27] LABS: BASOPHILS % (AUTO) 0.1 % (0.0-2.0); HEMATOCRIT 29.5 % (36-54); HEMOGLOBIN 9.2 g/dL (14.0-18.0); LYMPHOCYTES # (AUTO) 0.3 K/uL (1.0-5.5); LYMPHOCYTES % (AUTO) 1.7 % (20.5-51.5); MEAN CORPUSCULAR HEMOGLOBIN 23 pg (27-31); MEAN CORPUSCULAR HGB CONC 31 % (32-36); MEAN CORPUSCULAR VOLUME 73 fL (79.0-98.0); MONOCYTES # (AUTO) 0.7 K/uL (0.0-1.0); MONOCYTES % (AUTO) 3.7 % (1.7-9.3); NEUTROPHILS # (AUTO) 18.5 K/uL (1.8-7.7); PLATELET COUNT (AUTO) 208 K/uL (130-430); RED BLOOD CELL COUNT(AUTO) 4.04 MIL/uL (4.2-6.2); WHITE BLOOD COUNT (AUTO) 19.6 K/uL (4.8-10.8)
[2019-01-02] MEDS: traMADol HCL HCL 50 MG TABLET (ULTRAM) PO PRN (06:29)
[2019-01-02 06:47] LABS: ALBUMIN 1.5 g/dL (3.4-4.8); CALCIUM 7.7 mg/dL (8.4-11.0); CREATININE 2.55 mg/dL (0.55-1.30); POTASSIUM 4.5 mmol/L (3.5-5.1); TOTAL BILIRUBIN 0.3 mg/dL (0.0-1.0)
[2019-01-02 07:48] LABS: NEUTROPHILS % (AUTO) 94.5 % (40.0-70.0)
[2019-01-02 08:00] VITALS: BP_SYST 127
[2019-01-02] MEDS: LIPASE/PROTEASE/AMYLASE 1 CAP PO SCH ×3 (08:30→18:28)
[2019-01-02] MEDS: PANTOPRAZOLE SODIUM 40 MG TAB PO SCH (08:30)
[2019-01-02] MEDS: METOPROLOL SUCCINATE 25 MG TAB.SR.24H (TOPROL XL) PO SCH (08:31)
[2019-01-02] MEDS: TAMSULOSIN HCL 0.4 MG CAP PO SCH (08:31)
[2019-01-02] MEDS: PIPERACILLIN/TAZO 3.375/DEX-IS 50 ML IV SCH ×2 (09:04→21:08)
[2019-01-02 11:27] VITALS: BP_SYST 143
[2019-01-02 15:30] VITALS: BP_SYST 113
[2019-01-02] MEDS ORDERED: NS IRRIG SOLN 1000 ML IR ONE (17:20)
[2019-01-02] MEDS ORDERED: PROPOFOL 200MG/ 20ML VIAL (DIPRIVAN) IV ONE (17:20)
[2019-01-02] MEDS ORDERED: CEFAZOLIN 1 GM IVPB PREMIX 50 ML IV ONE (17:20)
[2019-01-02] MEDS ORDERED: ONDANSETRON HCL 4 MG/2 ML VIAL ONE (17:20)
[2019-01-02] MEDS ORDERED: MIDAZOLAM HCL 5 MG/ML VIAL (VERSED) IV ONE (17:20)
[2019-01-02] MEDS ORDERED: LR 1,000 ML IV.SOLN IV ONE (17:20)
[2019-01-02 18:15] VITALS: BP_SYST 118
[2019-01-02 20:15] VITALS: BP_SYST 130
[2019-01-02] MEDS: SIMVASTATIN 40 MG TABLET PO SCH (21:08)
[2019-01-02] MEDS: INSULIN REGULAR, HUMAN 100 UNITS/ML, 10 ML VIAL (novoLIN R) SUBCUT PRN (21:15)
[2019-01-03 00:11] VITALS: BP_SYST 126
[2019-01-03] MEDS: LOPERAMIDE HCL 2 MG CAPSULE PO PRN (00:48)
[2019-01-03] MEDS: traMADol HCL HCL 50 MG TABLET (ULTRAM) PO PRN ×2 (05:03→13:52)
[2019-01-03] MEDS: D5NS 1,000 ML IV SCH ×3 (05:11→17:21)
[2019-01-03] MEDS: INSULIN REGULAR, HUMAN 100 UNITS/ML, 10 ML VIAL (novoLIN R) SUBCUT PRN ×2 (06:22→20:27)
[2019-01-03 06:23] LABS: BASOPHILS # (AUTO) 0.1 K/uL (0.0-0.2); BASOPHILS % (AUTO) 0.6 % (0.0-2.0); HEMATOCRIT 28.7 % (36-54); HEMOGLOBIN 8.8 g/dL (14.0-18.0); LYMPHOCYTES # (AUTO) 0.7 K/uL (1.0-5.5); LYMPHOCYTES % (AUTO) 3.6 % (20.5-51.5); MEAN CORPUSCULAR HEMOGLOBIN 23 pg (27-31); MEAN CORPUSCULAR HGB CONC 31 % (32-36); MEAN CORPUSCULAR VOLUME 74 fL (79.0-98.0); MONOCYTES # (AUTO) 0.6 K/uL (0.0-1.0); MONOCYTES % (AUTO) 3.2 % (1.7-9.3); NEUTROPHILS # (AUTO) 17.7 K/uL (1.8-7.7); PLATELET COUNT (AUTO) 182 K/uL (130-430); RED CELL DISTRIBUTION WIDTH 19.5 % (9.0-15.0); WHITE BLOOD COUNT (AUTO) 19.2 K/uL (4.8-10.8)
[2019-01-03 06:35] LABS: ALBUMIN 1.4 g/dL (3.4-4.8); CREATININE 2.55 mg/dL (0.55-1.30); POTASSIUM 3.9 mmol/L (3.5-5.1); TOTAL BILIRUBIN 0.2 mg/dL (0.0-1.0)
[2019-01-03 06:53] LABS: CALCIUM 6.9 mg/dL (8.4-11.0)
[2019-01-03 07:12] LABS: NEUTROPHILS % (AUTO) 92.6 % (40.0-70.0)
[2019-01-03 08:00] VITALS: BP_SYST 126
[2019-01-03] MEDS: LIPASE/PROTEASE/AMYLASE 1 CAP PO SCH ×3 (08:32→17:19)
[2019-01-03] MEDS: TAMSULOSIN HCL 0.4 MG CAP PO SCH (08:32)
[2019-01-03] MEDS: PANTOPRAZOLE SODIUM 40 MG TAB PO SCH (08:32)
[2019-01-03] MEDS: PIPERACILLIN/TAZO 3.375/DEX-IS 50 ML IV SCH ×2 (08:33→20:27)
[2019-01-03] MEDS: METOPROLOL SUCCINATE 25 MG TAB.SR.24H (TOPROL XL) PO SCH (08:33)
[2019-01-03 11:31] VITALS: BP_SYST 113
[2019-01-03 15:07] LABS: APPEARANCE,SPUN,BODY FLUID CLEAR (CLEAR); BF APPEARANCE UNSPUN CLOUDY (CLEAR); BODY FLUID COLOR YELLOW (LT YELLOW); BODY FLUID SOURCE/ TYPE ASCITES; BODY FLUID TOTAL VOLUME 300 mL; RBC, BODY FLUID 288 /uL; SOURCE/TYPE ,BODY FLUID PARACENTESIS; WBC, BODY FLUID 1569 /uL
[2019-01-03 15:09] LABS: MONOCYTES,BODY FLUID 95 %; NEUTROPHIL, BODY FLUID 5 %
[2019-01-03 16:00] VITALS: BP_SYST 117
[2019-01-03 16:16] LABS: BODY FLUID GLUCOSE 38 mg/dL; BODY FLUID TOTAL PROTEIN 1.3 g/dL
[2019-01-03 20:00] VITALS: BP_SYST 117
[2019-01-03] MEDS: SIMVASTATIN 40 MG TABLET PO SCH (20:19)
[2019-01-04 00:08] VITALS: BP_SYST 124
[2019-01-04] MEDS: HYDROcodone/ACETAMIN 10-325 MG TAB PO PRN ×2 (00:35→20:15)
[2019-01-04] MEDS: D5NS 1,000 ML IV SCH ×2 (02:47→08:55)
[2019-01-04 05:59] LABS: BASOPHILS % (AUTO) 0.2 % (0.0-2.0); HEMATOCRIT 31.8 % (36-54); HEMOGLOBIN 9.9 g/dL (14.0-18.0); LYMPHOCYTES # (AUTO) 0.4 K/uL (1.0-5.5); MEAN CORPUSCULAR HEMOGLOBIN 23 pg (27-31); MEAN CORPUSCULAR HGB CONC 31 % (32-36); MEAN CORPUSCULAR VOLUME 74 fL (79.0-98.0); MONOCYTES # (AUTO) 0.8 K/uL (0.0-1.0); MONOCYTES % (AUTO) 4.3 % (1.7-9.3); NEUTROPHILS % (AUTO) 93.5 % (40.0-70.0); PLATELET COUNT (AUTO) 188 K/uL (130-430); RED BLOOD CELL COUNT(AUTO) 4.32 MIL/uL (4.2-6.2); RED CELL DISTRIBUTION WIDTH 19.1 % (9.0-15.0); WHITE BLOOD COUNT (AUTO) 18.1 K/uL (4.8-10.8)
[2019-01-04 06:42] LABS: ALBUMIN 1.3 g/dL (3.4-4.8); CREATININE 2.61 mg/dL (0.55-1.30); POTASSIUM 4.2 mmol/L (3.5-5.1); TOTAL BILIRUBIN 0.2 mg/dL (0.0-1.0)
[2019-01-04 06:52] LABS: CALCIUM 6.7 mg/dL (8.4-11.0)
[2019-01-04 07:55] VITALS: BP_SYST 113
[2019-01-04] MEDS: PIPERACILLIN/TAZO 3.375/DEX-IS 50 ML IV SCH ×2 (08:56→20:14)
[2019-01-04] MEDS: TAMSULOSIN HCL 0.4 MG CAP PO SCH (08:56)
[2019-01-04] MEDS: PANTOPRAZOLE SODIUM 40 MG TAB PO SCH (08:56)
[2019-01-04] MEDS: LIPASE/PROTEASE/AMYLASE 1 CAP PO SCH ×3 (08:56→17:16)
[2019-01-04] MEDS: METOPROLOL SUCCINATE 25 MG TAB.SR.24H (TOPROL XL) PO SCH (08:58)
[2019-01-04 09:26] VITALS: BP_SYST 113
[2019-01-04] MEDS: traMADol HCL HCL 50 MG TABLET (ULTRAM) PO PRN (10:49)
[2019-01-04 11:38] VITALS: BP_SYST 132
[2019-01-04 15:50] VITALS: BP_SYST 119
[2019-01-04 20:00] VITALS: BP_SYST 127
[2019-01-04] MEDS: SIMVASTATIN 40 MG TABLET PO SCH (20:14)
[2019-01-04] MEDS: LOPERAMIDE HCL 2 MG CAPSULE PO PRN (20:15)
[2019-01-05 00:50] VITALS: BP_SYST 98
[2019-01-05] MEDS: HYDROcodone/ACETAMIN 10-325 MG TAB PO PRN (04:05)
[2019-01-05] MEDS: D5NS 1,000 ML IV SCH (06:38)
[2019-01-05 08:25] VITALS: BP_SYST 133
[2019-01-05] MEDS ORDERED: MEGESTROL ACETATE 400 MG/10 ML UDC PO SCH (09:00)
[2019-01-05] MEDS: TAMSULOSIN HCL 0.4 MG CAP PO SCH (09:04)
[2019-01-05] MEDS: PANTOPRAZOLE SODIUM 40 MG TAB PO SCH (09:04)
[2019-01-05] MEDS: LIPASE/PROTEASE/AMYLASE 1 CAP PO SCH ×2 (09:04→12:26)
[2019-01-05] MEDS: METOPROLOL SUCCINATE 25 MG TAB.SR.24H (TOPROL XL) PO SCH (09:05)
[2019-01-05] MEDS: PIPERACILLIN/TAZO 3.375/DEX-IS 50 ML IV SCH (09:05)
[2019-01-05] MEDS: traMADol HCL HCL 50 MG TABLET (ULTRAM) PO PRN (09:12)
[2019-01-05 11:37] VITALS: BP_SYST 140
[2019-01-05 12:05] VITALS: BP_SYST 140
[2019-01-05] MEDS ORDERED: LEVO750T45 PO (12:11)
[2019-01-05] MEDS ORDERED: METR500T PO (12:12)
[2019-01-05] MEDS ORDERED: MEGE40TA PO (12:13)
== END 2019-01-05 14:15 | disposition home health service (06) | DRG 393 ==
LOC: SED 14:19 → STU 17:18 → SMU 01-02 09:14
PROVIDERS: ADMIT Internal Medicine; ATTEND Internal Medicine
PROC: 0WPBX0Z Removal of Drainage Device from Left Pleural Cavity, External Approach (ICD-10-PCS; principal; 2019-01-02 16:30)
DX: K52.0 Gastroenteritis and colitis due to radiation (principal); E43 Unspecified severe protein-calorie malnutrition; E41 Nutritional marasmus; C25.9 Malignant neoplasm of pancreas, unspecified; E87.1 Hypo-osmolality and hyponatremia; J91.0 Malignant pleural effusion; N17.9 Acute kidney failure, unspecified; R18.0 Malignant ascites; Z68.1 Body mass index [BMI] 19.9 or less, adult; E87.5 Hyperkalemia; K27.9 Peptic ulcer, site unspecified, unspecified as acute or chronic, without hemorrhage or perforation; I12.9 Hypertensive chronic kidney disease with stage 1 through stage 4 chronic kidney disease, or unspecified chronic kidney disease; E11.22 Type 2 diabetes mellitus with diabetic chronic kidney disease; N18.1 Chronic kidney disease, stage 1; E86.0 Dehydration; E87.6 Hypokalemia; D56.9 Thalassemia, unspecified; E78.5 Hyperlipidemia, unspecified; Z83.3 Family history of diabetes mellitus; Z85.528 Personal history of other malignant neoplasm of kidney; Z90.5 Acquired absence of kidney; Z92.21 Personal history of antineoplastic chemotherapy; Z92.3 Personal history of irradiation; Z88.6 Allergy status to analgesic agent; Z88.7 Allergy status to serum and vaccine; Z79.84 Long term (current) use of oral hypoglycemic drugs; Z79.899 Other long term (current) drug therapy
CPT/HCPCS: 36415; 71045; 80048; 80053; 81000-TC; 82150-TC; 82550-TC; 82947-TC; 82962; 83605; 83690-TC; 83880; 84157-TC; 84484; 85007; 85025; 85027; 85610-TC; 85730-TC; 87040-TC; 87230-TC; 89051-TC; 89060-TC; 93005; 94760; 96365; 96375; 97110-GP; 97116-GP; 97530-GP; 99285; G0378; J0610; J0690; J0696; J1815; J2250; J2405; J2543; J2704; J7030; J7042; J7060; J7120